=== PATIENT | female | born 1960 | race Caucasian/White ===

== ENCOUNTER 2017-07-23 13:08 | Inpatient (IN) | payer MEDICAID, MEDICARE, OTHER ==
[~2017-07-23] VITALS: Ht 180.3 cm; Wt 59.0 kg
[~2017-07-23 13:08] MED LIST: ALPR2TAB2 PO; CYCL10TA7 PO; CYCL5TAB PO; IBUP-2030 PO; TRAZ150T79 PO
[2017-07-23] MEDS ORDERED: SODIUM CHLORIDE 0.9% 1,000 ML IV ONE (14:18)
[2017-07-23] MEDS ORDERED: ONDANSETRON HCL 4MG/2ML VIAL IV ONE (14:45)
[2017-07-23] MEDS ORDERED: PANTOPRAZOLE SODIUM 40 MG/VIAL IV ONE (14:45)
[2017-07-23 15:16] LABS: BG BASE EXCESS -2.5 mmol/L (-2.0-2.0); BG CARBOXYHEMOGLOBIN 0.7 % (0.5-1.5); BG DEOXYHEMOGLOBIN 2.3 % (0.0-5.0); BG FRACTION INSPIRED OXYGEN 21; BG HCO3 ACT 20.5 mmol/L (22.0-26.0); BG METHEMOGLOBIN 0.2 % (0.0-1.5); BG OXYGEN SATURATION 97.7 % (92.0-98.5); BG OXYHEMOGLOBIN 96.8 % (94.0-97.0); BG PCO2 29.3 mmHg (35.0-45.0); BG PH 7.462 (7.350-7.450); BG SAMPLE SITE RIGHT RADIAL; BG TOTAL HEMOGLOBIN 10.6 g/dL (12.0-18.0); BG VENT MODE ROOM AIR
[2017-07-23 15:50] LABS: EOSINOPHILS % 0.5 % (0.0-5.0); HEMATOCRIT. 31.2 % (36.0-48.0); HEMOGLOBIN. 10.5 g/dL (12.0-16.0); LYMPHOCYTES % 20.3 % (20.0-50.0); MEAN CORPUSCULAR HEMOGLOBIN 36.9 pg (28.0-32.0); MEAN PLATELET VOLUME 10.6 fl (7.4-10.4); MONOCYTES % 7.5 % (2.0-8.0); NEUTROPHILS % 70.7 % (40.0-76.0); PLATELET 203 x1000/uL (130-400); RED BLOOD CELL COUNT 2.84 mill/uL (4.2-5.4); RED CELL DISTRIBUTION WIDTH 22.9 % (11.6-14.6)
[2017-07-23 15:59] LABS: CREATINE KINASE 66 IU/L (26-192)
[2017-07-23 16:01] LABS: CREATINE KINASE MB FRACTION < 0.5 ng/mL (0.5-3.6)
[2017-07-23 16:18] LABS: PLATELET ESTIMATE NORMAL
[2017-07-23 16:19] LABS: INR 1.1; PARTIAL THROMBOPLASTIN TIME 22.6 sec (23.4-31.0); PROTHROMBIN TIME 11.4 sec (9.4-11.6)
[2017-07-23 16:54] LABS: CLARITY URINE CLOUDY (CLEAR); COLOR URINE DARK YELLOW (YELLOW); KETONES URINE TRACE (NEGATIVE); LEUKOCYTE ESTERASE URINE TRACE (NEGATIVE); NITRITE URINE NEGATIVE (NEGATIVE); OCCULT BLOOD URINE 1+ (NEGATIVE); PROTEIN URINE 2+ (NEGATIVE); SPECIFIC GRAVITY URINE 1.026 (1.005-1.030)
[2017-07-23 16:59] LABS: CHLORIDE 104 mEq/L (98-107)
[2017-07-23 17:58] LABS: *AMPHETAMINES SCREEN URINE NEGATIVE (NEGATIVE); *BARBITURATES SCREEN URINE NEGATIVE (NEGATIVE)
[2017-07-23 17:59] LABS: *BENZODIAZEPINES SCREEN URINE PRESUMTIVE POSITIVE (NEGATIVE); *COCAINE SCREEN URINE NEGATIVE (NEGATIVE); METHADONE URINE SCREEN NEGATIVE (NEGATIVE); OPIATES URINE SCREEN NEGATIVE (NEGATIVE); PHENCYCLIDINE URINE SCREEN NEGATIVE (NEGATIVE)
[2017-07-23 18:00] LABS: CANNABINOID URINE SCREEN PRESUMTIVE POSITIVE (NEGATIVE)
[2017-07-23] MEDS ORDERED: CEFTRIAXONE 1 G PREMIX 50 ML IV ONE (18:00)
[2017-07-23] MEDS ORDERED: ONDANSETRON 4MG ODT PO ONE (18:00)
[2017-07-23] MEDS ORDERED: MORPHINE SULFATE 4 MG/ML CPJ (NOT FOR IM USE) IV ONE (18:00)
[2017-07-23] MEDS ORDERED: POTASSIUM CHLORIDE 20MEQ TABLET SR PO ONE (18:00)
[2017-07-23] MEDS ORDERED: SODIUM CHLORIDE 0.45% 1,000 ML IV SCH (18:39)
[2017-07-23] MEDS ORDERED: NA PHOS,M-B/NA PHOS,DI-BA ENEMA 118ML PR PRN (18:45)
[2017-07-23] MEDS ORDERED: GUAIFENESIN 200MG/10ML SUGAR FREE UDC PO PRN (18:45)
[2017-07-23] MEDS ORDERED: ONDANSETRON HCL 4MG/2ML VIAL IV PRN (18:45)
[2017-07-23] MEDS ORDERED: DIPHENHYDRAMINE 50MG/ML VIAL IV PRN (18:45)
[2017-07-23] MEDS ORDERED: ACETAMINOPHEN 325MG TABLET PO PRN (18:45)
[2017-07-23] MEDS ORDERED: LORAZEPAM 2MG/ML CPJ IV PRN (18:45)
[2017-07-23] MEDS ORDERED: HYDROCODONE/ACETAMINOPHEN 5/325MG TABLET PO PRN (18:45)
[2017-07-23] MEDS ORDERED: IPRATROPIUM/ALBUTEROL 0.5-3(2.5)MG/3ML NEB INH PRN (18:45)
[2017-07-23] MEDS ORDERED: DOCUSATE SODIUM 100MG CAPSULE PO PRN (18:45)
[2017-07-23] MEDS ORDERED: CLONIDINE 0.1MG TABLET PO PRN (18:45)
[2017-07-23] MEDS ORDERED: MAGNESIUM/ALUMINUM HYDROXIDE/SIMETHICONE 30ML UDC PO PRN (18:45)
[2017-07-23] MEDS: HYDROMORPHONE HCL/PF 2MG/ML CPJ IV PRN (20:48)
[2017-07-23 23:10] VITALS: BP 136/92
[2017-07-23] MEDS ORDERED: IBUP-1649 PO (23:24)
[2017-07-23] MEDS ORDERED: ALPR2TAB2 PO (23:24)
[2017-07-23 23:36] LABS: CHLORIDE 108 mEq/L (98-107)
[2017-07-24] MEDS: HYDROMORPHONE HCL/PF 2MG/ML CPJ IV PRN ×2 (00:36→05:51)
[2017-07-24] MEDS ORDERED: LEVOFLOXACIN 500MG PREMIX 100 ML IV SCH (02:00)
[2017-07-24 04:00] VITALS: BP 130/91
[2017-07-24 06:54] LABS: CHLORIDE 107 mEq/L (98-107)
[2017-07-24 07:12] LABS: LDL CHOLESTEROL 86 mg/dL (5-100)
[2017-07-24 07:13] LABS: HDL CHOLESTEROL 112 mg/dL (40-59); HEMATOCRIT. 26.5 % (36.0-48.0); HEMOGLOBIN. 8.9 g/dL (12.0-16.0); MEAN CORPUSCULAR HEMOGLOBIN 37.5 pg (28.0-32.0); MEAN CORPUSCULAR VOLUME 111.3 fL (81.0-99.0); MEAN PLATELET VOLUME 10.2 fl (7.4-10.4); PLATELET 147 x1000/uL (130-400); RED BLOOD CELL COUNT 2.38 mill/uL (4.2-5.4); RED CELL DISTRIBUTION WIDTH 22.4 % (11.6-14.6)
[2017-07-24 08:00] VITALS: BP 112/81
[2017-07-24] MEDS ORDERED: POTASSIUM CHLORIDE 20MEQ TABLET SR PO NR (11:45)
[2017-07-24 13:21] VITALS: BP 131/56
[2017-07-24 18:04] LABS: PLATELET ESTIMATE NORMAL
== END 2017-07-24 14:44 | disposition home or self-care (01) | DRG 393 ==
LOC: ER 13:08 → 5WST 17:04 → ENRESERV 21:02
PROVIDERS: ADMIT Internal Medicine; ATTEND Internal Medicine
DX: K63.5 Polyp of colon (principal); K29.71 Gastritis, unspecified, with bleeding; D64.9 Anemia, unspecified; F41.9 Anxiety disorder, unspecified; G62.9 Polyneuropathy, unspecified; I10 Essential (primary) hypertension; Z79.899 Other long term (current) drug therapy
CPT/HCPCS: 36415; 36600; 71045; 80048; 80053; 80061; 80305; 81003; 82010; 82375; 82550; 82553; 82805; 82962; 83605; 83880; 84443; 84484; 85025; 85610; 85730; 86850; 86900; 87040; 87086; 93005; 96365; 96375; 96376; 99291; C9113; G0482; J0696; J1170; J1200; J1956; J2060; J2270; J2405; J7030; Q0162

== ENCOUNTER 2017-07-29 17:33 | Emergency (ER) | payer SELFPAY ==
[~2017-07-29] VITALS: Ht 162.6 cm; Wt 65.0 kg
[~2017-07-29 17:33] MED LIST changes: -CYCL10TA7 PO; -CYCL5TAB PO; +IBUP-1649 PO; -IBUP-2030 PO
[2017-07-30 02:21] LABS: EOSINOPHILS % 0.6 % (0.0-5.0); HEMATOCRIT. 30.4 % (36.0-48.0); HEMOGLOBIN. 10.1 g/dL (12.0-16.0); LYMPHOCYTES % 38.6 % (20.0-50.0); MEAN CORPUSCULAR HEMOGLOBIN 36.1 pg (28.0-32.0); MEAN CORPUSCULAR VOLUME 108.4 fL (81.0-99.0); MEAN PLATELET VOLUME 8.8 fl (7.4-10.4); MONOCYTES % 10.6 % (2.0-8.0); NEUTROPHILS % 48.2 % (40.0-76.0); PLATELET 275 x1000/uL (130-400); RED BLOOD CELL COUNT 2.81 mill/uL (4.2-5.4); RED CELL DISTRIBUTION WIDTH 22.3 % (11.6-14.6)
[2017-07-30 02:24] LABS: CHLORIDE 103 mEq/L (98-107)
[2017-07-30 02:27] LABS: ETHANOL BLOOD 213 mg/dL
[2017-07-30 02:32] LABS: PLATELET ESTIMATE NORMAL
[2017-07-30 03:43] LABS: *AMPHETAMINES SCREEN URINE NEGATIVE (NEGATIVE); *BARBITURATES SCREEN URINE NEGATIVE (NEGATIVE); *BENZODIAZEPINES SCREEN URINE NEGATIVE (NEGATIVE)
[2017-07-30 03:44] LABS: *COCAINE SCREEN URINE NEGATIVE (NEGATIVE); CANNABINOID URINE SCREEN PRESUMTIVE POSITIVE (NEGATIVE); METHADONE URINE SCREEN NEGATIVE (NEGATIVE); OPIATES URINE SCREEN NEGATIVE (NEGATIVE); PHENCYCLIDINE URINE SCREEN NEGATIVE (NEGATIVE)
[2017-07-30] MEDS ORDERED: IBUPROFEN 600MG TABLET PO ONE (08:00)
[2017-07-30] MEDS ORDERED: POTASSIUM CHLORIDE 20MEQ TABLET SR PO ONE (08:00)
[2017-07-30 09:45] VITALS: BP 133/86
== END 2017-07-30 10:23 | disposition home or self-care (01) ==
LOC: ER 17:38
DX: F10.129 Alcohol abuse with intoxication, unspecified (principal); Y90.7 Blood alcohol level of 200-239 mg/100 ml
CPT/HCPCS: 36415; 80048; 80305; 81025; 85025; 99284; G0482

== ENCOUNTER 2017-08-20 21:04 | Emergency (ER) | payer MEDICARE ==
[~2017-08-20] VITALS: Ht 165.1 cm; Wt 59.0 kg
[~2017-08-20 21:04] MED LIST changes: +GABA-531 MT
[2017-08-20 21:14] VITALS: BP 120/86
== END 2017-08-21 08:19 | disposition left against medical advice (07) ==
LOC: ER 21:04
DX: Z53.21 Procedure and treatment not carried out due to patient leaving prior to being seen by health care provider (principal)
CPT/HCPCS: J7030

== ENCOUNTER 2017-11-05 10:50 | Inpatient (IN) | payer MEDICARE, OTHER ==
[~2017-11-05] VITALS: Ht 177.8 cm; Wt 73.9 kg
[2017-11-05] MEDS ORDERED: ONDANSETRON HCL 4MG/2ML INJ IV STA (11:20)
[2017-11-05] MEDS ORDERED: ADENOSINE 3 MG/ML 2ML VIAL IV ONE ×3 (11:20→11:30)
[2017-11-05] MEDS ORDERED: MORPHINE SULFATE 4 MG/ML CPJ (NOT FOR IM USE) IV STA (11:20)
[2017-11-05 14:10] LABS: BASOPHILS % 0.5 % (0.0-2.0); HEMATOCRIT. 40.6 % (36.0-48.0); HEMOGLOBIN. 13.3 g/dL (12.0-16.0); LYMPHOCYTES % 55.8 % (20.0-50.0); MEAN CORPUSCULAR HEMOGLOBIN 30.2 pg (28.0-32.0); MEAN PLATELET VOLUME 10.3 fl (7.4-10.4); MONOCYTES % 5.6 % (2.0-8.0); NEUTROPHILS % 38.1 % (40.0-76.0); PLATELET 323 x1000/uL (130-400); RED BLOOD CELL COUNT 4.42 mill/uL (4.2-5.4); RED CELL DISTRIBUTION WIDTH 15.2 % (11.6-14.6)
[2017-11-05 14:18] LABS: CHLORIDE 95 mEq/L (98-107)
[2017-11-05] MEDS ORDERED: DEXTROSE 50% WATER 50ML SYRINGE IV ONE ×2 (14:46→15:15)
[2017-11-05] MEDS ORDERED: POTASSIUM CHLORIDE 20MEQ TABLET SR PO ONE (15:15)
[2017-11-05] MEDS ORDERED: IBUP-2030 PO (17:25)
[2017-11-05] MEDS ORDERED: GABA-290 PO (17:25)
[2017-11-05] MEDS ORDERED: ONDANSETRON HCL 4MG/2ML INJ IV PRN (17:45)
[2017-11-05] MEDS ORDERED: POTASSIUM CHLORIDE 20MEQ/PACKET PO NR (17:45)
[2017-11-05] MEDS ORDERED: DILTIAZEM HCL 5MG/ML 5ML VIAL IV PRN (17:45)
[2017-11-05] MEDS ORDERED: ALPRAZOLAM 0.5 MG TABLET PO PRN (17:45)
[2017-11-05] MEDS: GABAPENTIN 300MG CAPSULE PO SCH (17:52)
[2017-11-05] MEDS: MORPHINE SULFATE 4 MG/ML CPJ (NOT FOR IM USE) IV PRN (17:59)
[2017-11-05] MEDS: ONDANSETRON HCL 4MG/2ML INJ IV PRN (17:59)
[2017-11-05] MEDS ORDERED: S350 PO (18:34)
[2017-11-05] MEDS ORDERED: POTASSIUM CHLORIDE INJ 40 MEQ in DEXT 5% WATER 250 ML IV SCH (19:00)
[2017-11-05 19:02] VITALS: BP 146/80
[2017-11-05 20:00] VITALS: BP 142/84
[2017-11-05] MEDS ORDERED: METOPROLOL TARTRATE 25MG TABLET PO SCH (21:00)
[2017-11-05] MEDS: TRAZODONE HCL 50MG TABLET PO SCH (21:21)
[2017-11-05] MEDS: METOPROLOL TARTRATE 50MG TABLET PO SCH (21:21)
[2017-11-05] MEDS: DILTIAZEM HCL 30MG TABLET PO SCH (22:12)
[2017-11-06] VITALS: BP 106/65
[2017-11-06 02:47] LABS: CLARITY URINE CLEAR (CLEAR); COLOR URINE YELLOW (YELLOW); KETONES URINE 3+ (NEGATIVE); LEUKOCYTE ESTERASE URINE NEGATIVE (NEGATIVE); NITRITE URINE NEGATIVE (NEGATIVE); OCCULT BLOOD URINE 1+ (NEGATIVE); PH URINE 5.5 (4.5-8.0); PROTEIN URINE NEGATIVE (NEGATIVE); SPECIFIC GRAVITY URINE 1.013 (1.005-1.030); UROBILINOGEN URINE 0.2 E.U./dL (0.2-1.0)
[2017-11-06 03:06] LABS: OPIATES URINE SCREEN PRESUMTIVE POSITIVE (NEGATIVE)
[2017-11-06 03:07] LABS: *AMPHETAMINES SCREEN URINE NEGATIVE (NEGATIVE); *BARBITURATES SCREEN URINE NEGATIVE (NEGATIVE); *BENZODIAZEPINES SCREEN URINE NEGATIVE (NEGATIVE); *COCAINE SCREEN URINE NEGATIVE (NEGATIVE); CANNABINOID URINE SCREEN PRESUMTIVE POSITIVE (NEGATIVE); PHENCYCLIDINE URINE SCREEN NEGATIVE (NEGATIVE)
[2017-11-06 03:08] LABS: METHADONE URINE SCREEN NEGATIVE (NEGATIVE)
[2017-11-06 04:00] VITALS: BP 116/74
[2017-11-06] MEDS: MORPHINE SULFATE 4 MG/ML CPJ (NOT FOR IM USE) IV PRN ×3 (04:22→20:41)
[2017-11-06] MEDS: DILTIAZEM HCL 30MG TABLET PO SCH ×3 (06:00→21:54)
[2017-11-06 06:40] LABS: BASOPHILS % 0.4 % (0.0-2.0); HEMATOCRIT. 31.2 % (36.0-48.0); HEMOGLOBIN. 10.7 g/dL (12.0-16.0); MEAN CORPUSCULAR HEMOGLOBIN 31.2 pg (28.0-32.0); MEAN CORPUSCULAR VOLUME 91.2 fL (81.0-99.0); NEUTROPHILS % 77.6 % (40.0-76.0); PLATELET 183 x1000/uL (130-400); RED BLOOD CELL COUNT 3.43 mill/uL (4.2-5.4); RED CELL DISTRIBUTION WIDTH 14.8 % (11.6-14.6)
[2017-11-06] MEDS: OMEPRAZOLE 20MG CAPSULE EXTENDED RELEASE PO SCH (06:47)
[2017-11-06 07:04] LABS: CHLORIDE 101 mEq/L (98-107)
[2017-11-06 08:00] VITALS: BP 103/63
[2017-11-06] MEDS: METOPROLOL TARTRATE 50MG TABLET PO SCH ×2 (08:23→20:35)
[2017-11-06] MEDS: GABAPENTIN 300MG CAPSULE PO SCH ×3 (08:24→16:57)
[2017-11-06 12:00] VITALS: BP 114/78
[2017-11-06] MEDS: VERAPAMIL HCL 40MG TABLET PO SCH ×2 (13:59→21:53)
[2017-11-06 16:00] VITALS: BP 105/68
[2017-11-06] MEDS: DIGOXIN 250MCG TABLET PO SCH (17:00)
[2017-11-06 20:00] VITALS: BP 104/69
[2017-11-06] MEDS: TRAZODONE HCL 50MG TABLET PO SCH (20:34)
[2017-11-07] VITALS: BP 115/65
[2017-11-07 04:00] VITALS: BP 116/75
[2017-11-07] MEDS: OMEPRAZOLE 20MG CAPSULE EXTENDED RELEASE PO SCH (05:58)
[2017-11-07] MEDS: DILTIAZEM HCL 30MG TABLET PO SCH (05:59)
[2017-11-07] MEDS: VERAPAMIL HCL 40MG TABLET PO SCH (05:59)
[2017-11-07] MEDS: MORPHINE SULFATE 4 MG/ML CPJ (NOT FOR IM USE) IV PRN ×3 (06:06→17:50)
[2017-11-07 08:00] VITALS: BP 119/71
[2017-11-07] MEDS: METOPROLOL TARTRATE 50MG TABLET PO SCH (08:39)
[2017-11-07] MEDS: GABAPENTIN 300MG CAPSULE PO SCH ×3 (09:52→17:49)
[2017-11-07 12:00] VITALS: BP 110/75
[2017-11-07 16:00] VITALS: BP 112/73
[2017-11-07] MEDS: DILTIAZEM HCL 180MG CAPSULE CD 24HR PO SCH (16:23)
[2017-11-07] MEDS: CARISOPRODOL 350 MG TABLET PO PRN (16:23)
[2017-11-07] MEDS: DIGOXIN 250MCG TABLET PO SCH (17:49)
[2017-11-07 20:00] VITALS: BP 94/63
[2017-11-07] MEDS: TRAZODONE HCL 50MG TABLET PO SCH (21:30)
[2017-11-08] VITALS (7 sets, daily range): BP systolic 91–113; BP diastolic 62–73
[2017-11-08] MEDS: OMEPRAZOLE 20MG CAPSULE EXTENDED RELEASE PO SCH (05:49)
[2017-11-08] MEDS: HYDROCODONE/ACETAMINOPHEN 5/325MG TABLET PO PRN (05:50)
[2017-11-08 07:33] LABS: HEMATOCRIT 31.9 % (36.0-48.0); HEMOGLOBIN 10.8 g/dL (12.0-16.0); MEAN CORPUSCULAR HEMOGLOBIN 30.8 pg (28.0-32.0); MEAN CORPUSCULAR VOLUME 90.9 fL (81.0-99.0); PLATELET 110 x1000/uL (130-400); RED CELL DISTRIBUTION WIDTH 14.6 % (11.6-14.6)
[2017-11-08 07:53] LABS: CHLORIDE 102 mEq/L (98-107)
[2017-11-08] MEDS: DILTIAZEM HCL 180MG CAPSULE CD 24HR PO SCH (09:08)
[2017-11-08] MEDS: GABAPENTIN 300MG CAPSULE PO SCH ×3 (09:08→18:31)
[2017-11-08] MEDS: CARISOPRODOL 350 MG TABLET PO PRN ×2 (09:17→18:31)
[2017-11-08] MEDS: MORPHINE SULFATE 4 MG/ML CPJ (NOT FOR IM USE) IV PRN ×2 (13:27→20:22)
[2017-11-08] MEDS: ONDANSETRON HCL 4MG/2ML INJ IV PRN (13:37)
[2017-11-08] MEDS: DIGOXIN 250MCG TABLET PO SCH (18:31)
[2017-11-08] MEDS: TRAZODONE HCL 50MG TABLET PO SCH (21:20)
[2017-11-08] MEDS: DOCUSATE SODIUM 250MG CAPSULE PO SCH (21:20)
[2017-11-09] VITALS: BP 101/64
[2017-11-09 04:00] VITALS: BP 103/57
[2017-11-09] MEDS: MORPHINE SULFATE 4 MG/ML CPJ (NOT FOR IM USE) IV PRN ×3 (04:06→20:17)
[2017-11-09] MEDS: OMEPRAZOLE 20MG CAPSULE EXTENDED RELEASE PO SCH (06:11)
[2017-11-09 08:00] VITALS: BP 105/65
[2017-11-09] MEDS: HYDROCODONE/ACETAMINOPHEN 5/325MG TABLET PO PRN ×2 (08:14→15:46)
[2017-11-09] MEDS: GABAPENTIN 300MG CAPSULE PO SCH ×3 (08:14→17:26)
[2017-11-09] MEDS: DOCUSATE SODIUM 250MG CAPSULE PO SCH ×2 (08:14→17:26)
[2017-11-09] MEDS: DILTIAZEM HCL 180MG CAPSULE CD 24HR PO SCH (08:14)
[2017-11-09 12:00] VITALS: BP 107/64
[2017-11-09] MEDS: CARISOPRODOL 350 MG TABLET PO PRN (13:45)
[2017-11-09 16:00] VITALS: BP 100/62
[2017-11-09] MEDS: DIGOXIN 250MCG TABLET PO SCH (17:26)
[2017-11-09 20:00] VITALS: BP 109/64
[2017-11-09] MEDS: TRAZODONE HCL 50MG TABLET PO SCH (20:17)
[2017-11-09] MEDS ORDERED: MAGNESIUM HYDROXIDE 400MG/5ML 30ML UDC PO PRN (22:15)
[2017-11-10] VITALS: BP 116/75
[2017-11-10] MEDS: MORPHINE SULFATE 4 MG/ML CPJ (NOT FOR IM USE) IV PRN ×3 (03:26→17:53)
[2017-11-10 03:30] VITALS: BP 124/88
[2017-11-10] MEDS: OMEPRAZOLE 20MG CAPSULE EXTENDED RELEASE PO SCH (06:33)
[2017-11-10 07:45] LABS: BASOPHILS % 0.6 % (0.0-2.0); HEMATOCRIT. 34.1 % (36.0-48.0); HEMOGLOBIN. 11.4 g/dL (12.0-16.0); MEAN CORPUSCULAR HEMOGLOBIN 30.5 pg (28.0-32.0); MEAN CORPUSCULAR VOLUME 91.6 fL (81.0-99.0); MEAN PLATELET VOLUME 10.9 fl (7.4-10.4); MONOCYTES % 9.9 % (2.0-8.0); NEUTROPHILS % 57.5 % (40.0-76.0); PLATELET 125 x1000/uL (130-400); RED BLOOD CELL COUNT 3.72 mill/uL (4.2-5.4); RED CELL DISTRIBUTION WIDTH 14.6 % (11.6-14.6)
[2017-11-10 07:57] LABS: CHLORIDE 100 mEq/L (98-107)
[2017-11-10 08:00] VITALS: BP 123/79
[2017-11-10] MEDS: GABAPENTIN 300MG CAPSULE PO SCH ×3 (08:51→17:51)
[2017-11-10] MEDS: DILTIAZEM HCL 180MG CAPSULE CD 24HR PO SCH (08:51)
[2017-11-10] MEDS: DOCUSATE SODIUM 250MG CAPSULE PO SCH ×2 (08:51→17:51)
[2017-11-10] MEDS ORDERED: NA PHOS,M-B/NA PHOS,DI-BA ENEMA 118ML PR PRN (09:00)
[2017-11-10] MEDS: ONDANSETRON HCL 4MG/2ML INJ IV PRN (09:08)
[2017-11-10 12:00] VITALS: BP 109/71
[2017-11-10] MEDS: CARISOPRODOL 350 MG TABLET PO PRN ×2 (12:32→21:20)
[2017-11-10 16:00] VITALS: BP 100/62
[2017-11-10] MEDS: DIGOXIN 250MCG TABLET PO SCH (17:51)
[2017-11-10 20:00] VITALS: BP 106/67
[2017-11-10] MEDS: TRAZODONE HCL 50MG TABLET PO SCH (21:20)
[2017-11-11] VITALS (8 sets, daily range): BP systolic 109–121; BP diastolic 69–84
[2017-11-11] MEDS: OMEPRAZOLE 20MG CAPSULE EXTENDED RELEASE PO SCH (05:15)
[2017-11-11] MEDS: HYDROCODONE/ACETAMINOPHEN 5/325MG TABLET PO PRN ×2 (05:16→09:51)
[2017-11-11] MEDS: CARISOPRODOL 350 MG TABLET PO PRN ×3 (05:21→17:32)
[2017-11-11] MEDS: GABAPENTIN 300MG CAPSULE PO SCH ×3 (09:03→17:25)
[2017-11-11] MEDS: DOCUSATE SODIUM 250MG CAPSULE PO SCH ×2 (09:03→17:25)
[2017-11-11] MEDS: DILTIAZEM HCL 180MG CAPSULE CD 24HR PO SCH (09:04)
[2017-11-11] MEDS: HYDROCODONE/ACETAMINOPHEN 10/325MG TABLET PO PRN ×2 (15:01→20:04)
[2017-11-11] MEDS: DIGOXIN 250MCG TABLET PO SCH (17:25)
[2017-11-11] MEDS: TRAZODONE HCL 50MG TABLET PO SCH (21:28)
[2017-11-12] VITALS: BP 108/69
[2017-11-12 04:00] VITALS: BP 101/66
[2017-11-12] MEDS: OMEPRAZOLE 20MG CAPSULE EXTENDED RELEASE PO SCH (05:52)
[2017-11-12 08:00] VITALS: BP 132/81
[2017-11-12] MEDS: HYDROCODONE/ACETAMINOPHEN 10/325MG TABLET PO PRN ×2 (08:46→17:29)
[2017-11-12] MEDS: DOCUSATE SODIUM 250MG CAPSULE PO SCH ×2 (08:47→17:28)
[2017-11-12] MEDS: DILTIAZEM HCL 180MG CAPSULE CD 24HR PO SCH (08:47)
[2017-11-12] MEDS: GABAPENTIN 300MG CAPSULE PO SCH ×3 (08:47→17:28)
[2017-11-12 12:00] VITALS: BP 111/69
[2017-11-12] MEDS: CARISOPRODOL 350 MG TABLET PO PRN (14:10)
[2017-11-12] MEDS: MORPHINE SULFATE 4 MG/ML CPJ (NOT FOR IM USE) IV PRN (14:11)
[2017-11-12 16:00] VITALS: BP 130/85
[2017-11-12] MEDS: DIGOXIN 250MCG TABLET PO SCH (17:28)
[2017-11-12 20:00] VITALS: BP 110/70
[2017-11-12] MEDS: TRAZODONE HCL 50MG TABLET PO SCH (21:16)
[2017-11-13] VITALS: BP 141/86
[2017-11-13] MEDS: MORPHINE SULFATE 4 MG/ML CPJ (NOT FOR IM USE) IV PRN ×3 (00:03→18:41)
[2017-11-13] MEDS: ALPRAZOLAM 0.5 MG TABLET PO PRN (02:57)
[2017-11-13 04:00] VITALS: BP 121/78
[2017-11-13] MEDS: OMEPRAZOLE 20MG CAPSULE EXTENDED RELEASE PO SCH (05:56)
[2017-11-13] MEDS: CARISOPRODOL 350 MG TABLET PO PRN (05:56)
[2017-11-13 08:19] VITALS: BP 109/76
[2017-11-13] MEDS: DOCUSATE SODIUM 250MG CAPSULE PO SCH ×2 (09:22→18:40)
[2017-11-13] MEDS: GABAPENTIN 300MG CAPSULE PO SCH ×3 (09:22→18:38)
[2017-11-13] MEDS: DILTIAZEM HCL 180MG CAPSULE CD 24HR PO SCH (09:22)
[2017-11-13 12:30] VITALS: BP 98/68
[2017-11-13 16:00] VITALS: BP 113/69
[2017-11-13] MEDS: DIGOXIN 250MCG TABLET PO SCH (18:38)
[2017-11-13 20:00] VITALS: BP 96/62
[2017-11-13] MEDS: TRAZODONE HCL 50MG TABLET PO SCH (20:30)
[2017-11-14] VITALS: BP 118/71
[2017-11-14 04:00] VITALS: BP 116/70
[2017-11-14] MEDS: MORPHINE SULFATE 4 MG/ML CPJ (NOT FOR IM USE) IV PRN ×3 (04:20→21:46)
[2017-11-14] MEDS: OMEPRAZOLE 20MG CAPSULE EXTENDED RELEASE PO SCH (06:35)
[2017-11-14 08:00] VITALS: BP 98/57
[2017-11-14] MEDS: DILTIAZEM HCL 180MG CAPSULE CD 24HR PO SCH (09:00)
[2017-11-14] MEDS: GABAPENTIN 300MG CAPSULE PO SCH ×3 (09:41→18:09)
[2017-11-14] MEDS: CARISOPRODOL 350 MG TABLET PO PRN ×2 (09:41→18:19)
[2017-11-14] MEDS: DOCUSATE SODIUM 250MG CAPSULE PO SCH ×2 (09:42→18:09)
[2017-11-14] MEDS: HYDROCODONE/ACETAMINOPHEN 10/325MG TABLET PO PRN ×2 (09:42→18:20)
[2017-11-14 12:00] VITALS: BP 108/69
[2017-11-14 16:00] VITALS: BP 119/76
[2017-11-14] MEDS: DIGOXIN 250MCG TABLET PO SCH (18:09)
[2017-11-14 20:00] VITALS: BP 119/74
[2017-11-14] MEDS: TRAZODONE HCL 50MG TABLET PO SCH (21:30)
[2017-11-15] VITALS: BP 122/71
[2017-11-15] MEDS: HYDROCODONE/ACETAMINOPHEN 10/325MG TABLET PO PRN ×3 (00:40→18:28)
[2017-11-15 04:00] VITALS: BP 117/64
[2017-11-15] MEDS: MORPHINE SULFATE 4 MG/ML CPJ (NOT FOR IM USE) IV PRN ×3 (05:04→22:52)
[2017-11-15] MEDS: OMEPRAZOLE 20MG CAPSULE EXTENDED RELEASE PO SCH (06:07)
[2017-11-15 06:18] LABS: HEMATOCRIT. 30.9 % (36.0-48.0); HEMOGLOBIN. 10.4 g/dL (12.0-16.0); MEAN CORPUSCULAR HEMOGLOBIN 30.9 pg (28.0-32.0); MEAN CORPUSCULAR VOLUME 92.2 fL (81.0-99.0); MEAN PLATELET VOLUME 10.6 fl (7.4-10.4); PLATELET 221 x1000/uL (130-400); RED BLOOD CELL COUNT 3.35 mill/uL (4.2-5.4); RED CELL DISTRIBUTION WIDTH 15.8 % (11.6-14.6)
[2017-11-15 07:01] LABS: CHLORIDE 104 mEq/L (98-107)
[2017-11-15 08:00] VITALS: BP 134/83
[2017-11-15] MEDS: DOCUSATE SODIUM 250MG CAPSULE PO SCH ×2 (08:50→18:27)
[2017-11-15] MEDS: DILTIAZEM HCL 180MG CAPSULE CD 24HR PO SCH (08:51)
[2017-11-15] MEDS: GABAPENTIN 300MG CAPSULE PO SCH ×3 (08:51→18:28)
[2017-11-15] MEDS: CARISOPRODOL 350 MG TABLET PO PRN ×2 (08:57→18:28)
[2017-11-15 10:08] LABS: PLATELET ESTIMATE NORMAL
[2017-11-15 12:00] VITALS: BP 130/84
[2017-11-15 16:00] VITALS: BP 113/72
[2017-11-15] MEDS: DIGOXIN 250MCG TABLET PO SCH (18:28)
[2017-11-15 20:00] VITALS: BP 114/73
[2017-11-15] MEDS: TRAZODONE HCL 50MG TABLET PO SCH (21:33)
[2017-11-16] VITALS: BP 93/54
[2017-11-16 04:00] VITALS: BP 116/64
[2017-11-16] MEDS: CARISOPRODOL 350 MG TABLET PO PRN ×2 (04:49→17:14)
[2017-11-16] MEDS: HYDROCODONE/ACETAMINOPHEN 10/325MG TABLET PO PRN (04:49)
[2017-11-16] MEDS: OMEPRAZOLE 20MG CAPSULE EXTENDED RELEASE PO SCH (04:53)
[2017-11-16 08:00] VITALS: BP 122/75
[2017-11-16] MEDS: ALPRAZOLAM 0.5 MG TABLET PO PRN (08:09)
[2017-11-16] MEDS: DOCUSATE SODIUM 250MG CAPSULE PO SCH ×2 (08:09→17:14)
[2017-11-16] MEDS: DILTIAZEM HCL 180MG CAPSULE CD 24HR PO SCH (08:10)
[2017-11-16] MEDS: GABAPENTIN 300MG CAPSULE PO SCH ×3 (08:10→17:14)
[2017-11-16] MEDS: MORPHINE SULFATE 4 MG/ML CPJ (NOT FOR IM USE) IV PRN ×2 (11:30→20:31)
[2017-11-16 12:00] VITALS: BP 97/65
[2017-11-16 16:00] VITALS: BP 95/59
[2017-11-16] MEDS: DIGOXIN 250MCG TABLET PO SCH (17:14)
[2017-11-16 20:00] VITALS: BP 104/62
[2017-11-16] MEDS: TRAZODONE HCL 50MG TABLET PO SCH (20:26)
[2017-11-17] VITALS: BP 102/64
[2017-11-17 04:00] VITALS: BP 105/61
[2017-11-17] MEDS: MORPHINE SULFATE 4 MG/ML CPJ (NOT FOR IM USE) IV PRN (05:01)
[2017-11-17] MEDS: OMEPRAZOLE 20MG CAPSULE EXTENDED RELEASE PO SCH (05:56)
[2017-11-17] MEDS: ALPRAZOLAM 0.5 MG TABLET PO PRN (05:57)
[2017-11-17] MEDS: DOCUSATE SODIUM 250MG CAPSULE PO SCH ×2 (08:49→17:33)
[2017-11-17] MEDS: GABAPENTIN 300MG CAPSULE PO SCH ×3 (08:51→17:34)
[2017-11-17] MEDS: DILTIAZEM HCL 180MG CAPSULE CD 24HR PO SCH (08:55)
[2017-11-17 12:18] VITALS: BP 118/76
[2017-11-17] MEDS: CARISOPRODOL 350 MG TABLET PO PRN ×2 (12:24→17:34)
[2017-11-17 14:13] VITALS: BP 118/76
[2017-11-17 16:00] VITALS: BP 121/74
[2017-11-17] MEDS: DIGOXIN 250MCG TABLET PO SCH (17:32)
[2017-11-17 20:00] VITALS: BP 125/81
== END 2017-11-17 21:20 | DRG 641 ==
LOC: ER 11:09 → 5WST 15:18 → EDBEDREQ 15:41 → EDBEDREQTM 15:41 → ENRESERV 16:05
PROVIDERS: ADMIT Internal Medicine; ATTEND Internal Medicine
DX: E16.2 Hypoglycemia, unspecified (principal); I47.1 Supraventricular tachycardia; E87.6 Hypokalemia; I10 Essential (primary) hypertension; F10.10 Alcohol abuse, uncomplicated; E87.8 Other disorders of electrolyte and fluid balance, not elsewhere classified; K29.70 Gastritis, unspecified, without bleeding; D64.9 Anemia, unspecified; G47.00 Insomnia, unspecified; F12.90 Cannabis use, unspecified, uncomplicated; I48.91 Unspecified atrial fibrillation; J44.9 Chronic obstructive pulmonary disease, unspecified; F41.9 Anxiety disorder, unspecified; G62.9 Polyneuropathy, unspecified; Z59.0 Homelessness; Z71.41 Alcohol abuse counseling and surveillance of alcoholic; Z79.899 Other long term (current) drug therapy
CPT/HCPCS: 36415; 71045; 80048; 80053; 80162; 80305; 81003; 82962; 83880; 84132; 84443; 84484; 85025; 85027; 93005; 93306; 96374; 96375; 97112; 97116; 97162; 97530; 99291; C1893; J0153; J2270; J2405; J3480; J7050; J7060

== ENCOUNTER 2018-01-05 16:45 | Inpatient (IN) | payer MEDICARE, OTHER ==
[~2018-01-05] VITALS: Ht 177.8 cm; Wt 68.0 kg
[~2018-01-05 16:45] MED LIST changes: +GABA-290 PO; -GABA-531 MT; -IBUP-1649 PO; +IBUP-2030 PO; +S350 PO
[2018-01-05] MEDS ORDERED: SODIUM CHLORIDE 0.9% 1,000 ML IV ONE (20:15)
[2018-01-05] MEDS ORDERED: NITROGLYCERIN 0.4MG TABLET SL SL PRN ×2 (20:15→22:30)
[2018-01-05] MEDS ORDERED: ASPIRIN 81MG TABLET PO ONE (20:15)
[2018-01-05] MEDS ORDERED: KETOROLAC 30MG/ML VIAL IV ONE (20:30)
[2018-01-05 20:37] LABS: BASOPHILS % 1.1 % (0.0-2.0); HEMATOCRIT. 39.3 % (36.0-48.0); LYMPHOCYTES % 38.5 % (20.0-50.0); MEAN CORPUSCULAR HEMOGLOBIN 31.3 pg (28.0-32.0); MEAN CORPUSCULAR VOLUME 94.3 fL (81.0-99.0); MEAN PLATELET VOLUME 10.3 fl (7.4-10.4); MONOCYTES % 4.4 % (2.0-8.0); PLATELET 294 x1000/uL (130-400); RED BLOOD CELL COUNT 4.16 mill/uL (4.2-5.4); RED CELL DISTRIBUTION WIDTH 15.2 % (11.6-14.6)
[2018-01-05 20:43] LABS: CHLORIDE 103 mEq/L (98-107)
[2018-01-05 20:49] LABS: D-DIMER 0.36 mg/L FEU (<0.50); INR 1.2; PROTHROMBIN TIME 12.1 sec (9.1-11.1)
[2018-01-05 20:59] LABS: ETHANOL BLOOD 318 mg/dL
[2018-01-05] MEDS ORDERED: ZOLPIDEM TARTRATE 5MG TABLET PO PRN (21:00)
[2018-01-05] MEDS ORDERED: POTASSIUM CHLORIDE 20MEQ TABLET SR PO ONE (21:45)
[2018-01-05] MEDS ORDERED: GUAIFENESIN 200MG/10ML SUGAR FREE UDC PO PRN (22:30)
[2018-01-05] MEDS ORDERED: DOCUSATE SODIUM 100MG CAPSULE PO PRN (22:30)
[2018-01-05] MEDS ORDERED: IPRATROPIUM/ALBUTEROL 0.5-3(2.5)MG/3ML NEB INH PRN (22:30)
[2018-01-05] MEDS ORDERED: MAGNESIUM/ALUMINUM HYDROXIDE/SIMETHICONE 30ML UDC PO PRN (22:30)
[2018-01-05] MEDS ORDERED: ACETAMINOPHEN 325MG TABLET PO PRN (22:30)
[2018-01-05] MEDS ORDERED: NA PHOS,M-B/NA PHOS,DI-BA ENEMA 118ML PR PRN (22:30)
[2018-01-05] MEDS ORDERED: CLONIDINE 0.1MG TABLET PO PRN (22:30)
[2018-01-06] MEDS: KETOROLAC 15MG/ML VIAL IV PRN ×5 (01:03→21:47)
[2018-01-06] MEDS: ONDANSETRON HCL 4MG/2ML INJ IV PRN ×2 (01:15→07:28)
[2018-01-06] MEDS ORDERED: MVI, ADULT NO.1 10 ML, FOLIC ACID 1 MG, THIAMINE HCL 100 MG in SODIUM CHLORIDE 0.9% 1,0... IV SCH ×4 (06:00)
[2018-01-06 06:29] LABS: CLARITY URINE CLEAR (CLEAR); COLOR URINE YELLOW (YELLOW); KETONES URINE 1+ (NEGATIVE); LEUKOCYTE ESTERASE URINE 1+ (NEGATIVE); NITRITE URINE NEGATIVE (NEGATIVE); OCCULT BLOOD URINE 1+ (NEGATIVE); PROTEIN URINE NEGATIVE (NEGATIVE); SPECIFIC GRAVITY URINE 1.017 (1.005-1.030); UROBILINOGEN URINE 0.2 E.U./dL (0.2-1.0)
[2018-01-06 07:11] LABS: *AMPHETAMINES SCREEN URINE NEGATIVE (NEGATIVE); *BARBITURATES SCREEN URINE NEGATIVE (NEGATIVE)
[2018-01-06 07:12] LABS: *BENZODIAZEPINES SCREEN URINE PRESUMTIVE POSITIVE (NEGATIVE); *COCAINE SCREEN URINE NEGATIVE (NEGATIVE); METHADONE URINE SCREEN NEGATIVE (NEGATIVE); OPIATES URINE SCREEN NEGATIVE (NEGATIVE); PHENCYCLIDINE URINE SCREEN NEGATIVE (NEGATIVE)
[2018-01-06 07:14] LABS: CANNABINOID URINE SCREEN PRESUMTIVE POSITIVE (NEGATIVE)
[2018-01-06] MEDS: FAMOTIDINE 20MG TABLET PO SCH ×2 (10:15→21:46)
[2018-01-06 10:43] VITALS: BP 135/75
[2018-01-06] MEDS: ENOXAPARIN 40MG/0.4ML SYR SUBCUT SCH (11:56)
[2018-01-06] MEDS: METOPROLOL TARTRATE 25MG TABLET PO SCH ×2 (12:01→21:46)
[2018-01-06] MEDS: LEVOFLOXACIN 500MG TABLET PO SCH (14:15)
[2018-01-06 18:52] LABS: CREATINE KINASE 94 IU/L (26-192)
[2018-01-06 18:54] LABS: CREATINE KINASE MB FRACTION < 1.0 ng/mL (0.5-3.6)
[2018-01-06 20:00] VITALS: BP_SYST 121; BP_SYST 126; BP_DIAS 76
[2018-01-07] VITALS: BP 141/78
[2018-01-07 04:00] VITALS: BP 125/70
[2018-01-07] MEDS: KETOROLAC 15MG/ML VIAL IV PRN (07:42)
[2018-01-07] MEDS: FAMOTIDINE 20MG TABLET PO SCH (09:00)
[2018-01-07] MEDS: METOPROLOL TARTRATE 25MG TABLET PO SCH (09:00)
[2018-01-07] MEDS: ENOXAPARIN 40MG/0.4ML SYR SUBCUT SCH (09:00)
[2018-01-07 10:22] VITALS: BP 147/80
[2018-01-07] MEDS: LEVOFLOXACIN 500MG TABLET PO SCH ×2 (11:35→11:37)
[2018-01-13] MEDS ORDERED: DIPH25TA24 MT (22:26)
[2018-01-13] MEDS ORDERED: CYCL10TA7 MT (22:26)
[2018-01-13] MEDS ORDERED: DIGO250T81 MT (22:26)
== END 2018-01-07 13:07 | disposition home health service (06) | DRG 392 ==
LOC: ER 16:45 → 6WST 21:52 → EDBEDREQ 21:54 → EDBEDREQTM 21:54 → ENRESERV 01-06 08:04
PROVIDERS: ADMIT Internal Medicine; ATTEND Internal Medicine
DX: K21.9 Gastro-esophageal reflux disease without esophagitis (principal); I47.1 Supraventricular tachycardia; I50.9 Heart failure, unspecified; I11.0 Hypertensive heart disease with heart failure; F10.229 Alcohol dependence with intoxication, unspecified; F12.10 Cannabis abuse, uncomplicated; E87.6 Hypokalemia; Y90.8 Blood alcohol level of 240 mg/100 ml or more; Z59.0 Homelessness; Z79.899 Other long term (current) drug therapy
CPT/HCPCS: 36415; 71045; 80305; 82550; 82553; 83036; 83880; 84484; 85379; 93005; 96374; 96375; 99285; G0482; J1650; J1885; J2405; J3411; J3490; J7030

== ENCOUNTER 2018-01-24 10:20 | Inpatient (IN) | payer MEDICARE, OTHER ==
[~2018-01-24] VITALS: Ht 177.8 cm; Wt 68.0 kg
[~2018-01-24 10:20] MED LIST changes: +CYCL10TA7 MT; +DIGO250T81 MT; +DIPH25TA24 MT; -IBUP-2030 PO
[2018-01-24] MEDS ORDERED: MORPHINE SULFATE 4 MG/ML CPJ (NOT FOR IM USE) IV STA (11:17)
[2018-01-24] MEDS ORDERED: MORPHINE SULFATE 10 MG/ML CPJ IV NR (12:00)
[2018-01-24 12:15] LABS: BASOPHILS % 1.9 % (0.0-2.0); HEMATOCRIT. 35.7 % (36.0-48.0); LYMPHOCYTES % 31.9 % (20.0-50.0); MEAN CORPUSCULAR HEMOGLOBIN 32.2 pg (28.0-32.0); MEAN CORPUSCULAR VOLUME 95.5 fL (81.0-99.0); MONOCYTES % 12.6 % (2.0-8.0); NEUTROPHILS % 53.6 % (40.0-76.0); PLATELET 233 x1000/uL (130-400); RED BLOOD CELL COUNT 3.74 mill/uL (4.2-5.4); RED CELL DISTRIBUTION WIDTH 16.3 % (11.6-14.6)
[2018-01-24 12:29] LABS: CHLORIDE 96 mEq/L (98-107)
[2018-01-24] MEDS ORDERED: AMOXICILLIN/POTASSIUM CLAVULANATE 875/125MG TAB PO ONE (13:30)
[2018-01-24] MEDS ORDERED: ONDANSETRON HCL 4MG/2ML INJ IV PRN (15:45)
[2018-01-24] MEDS ORDERED: MAGNESIUM/ALUMINUM HYDROXIDE/SIMETHICONE 30ML UDC PO PRN (15:45)
[2018-01-24] MEDS ORDERED: ACETAMINOPHEN 325MG TABLET PO PRN (15:45)
[2018-01-24] MEDS ORDERED: DOCUSATE SODIUM 100MG CAPSULE PO PRN (15:45)
[2018-01-24] MEDS ORDERED: CLONIDINE 0.1MG TABLET PO PRN (15:45)
[2018-01-24 17:40] VITALS: BP 130/83
[2018-01-24] MEDS: HYDROCODONE/ACETAMINOPHEN 5/325MG TABLET PO PRN (18:52)
[2018-01-24 20:00] VITALS: BP 120/82
[2018-01-24] MEDS ORDERED: VANCOMYCIN 1500MG in DEXTROSE 5% WATER 250ML IV NR (21:00)
[2018-01-25] VITALS: BP 102/62
[2018-01-25] MEDS: HYDROCODONE/ACETAMINOPHEN 5/325MG TABLET PO PRN ×3 (00:08→17:13)
[2018-01-25 01:33] LABS: CREATINE KINASE 65 IU/L (26-192); CREATINE KINASE MB FRACTION < 1.0 ng/mL (0.5-3.6)
[2018-01-25 04:00] VITALS: BP 119/73
[2018-01-25] MEDS: VANCOMYCIN 750 MG PREMIX 150 ML IV SCH ×3 (05:41→21:41)
[2018-01-25 07:10] LABS: BASOPHILS % 1.4 % (0.0-2.0); EOSINOPHILS % 0.3 % (0.0-5.0); HEMATOCRIT. 32.2 % (36.0-48.0); HEMOGLOBIN. 10.9 g/dL (12.0-16.0); LYMPHOCYTES % 34.8 % (20.0-50.0); MEAN CORPUSCULAR HEMOGLOBIN 32.1 pg (28.0-32.0); MEAN CORPUSCULAR VOLUME 95.1 fL (81.0-99.0); MEAN PLATELET VOLUME 10.2 fl (7.4-10.4); MONOCYTES % 12.2 % (2.0-8.0); NEUTROPHILS % 51.3 % (40.0-76.0); PLATELET 181 x1000/uL (130-400); RED BLOOD CELL COUNT 3.38 mill/uL (4.2-5.4); RED CELL DISTRIBUTION WIDTH 16.2 % (11.6-14.6)
[2018-01-25 08:28] VITALS: BP 110/65
[2018-01-25] MEDS ORDERED: CARISOPRODOL 350 MG TABLET PO PRN (09:15)
[2018-01-25] MEDS ORDERED: DILTIAZEM HCL 5MG/ML 5ML VIAL IV NR (09:15)
[2018-01-25] MEDS: CARISOPRODOL 350 MG TABLET PO PRN ×2 (10:26→19:45)
[2018-01-25] MEDS: DIGOXIN 250MCG TABLET PO SCH (10:26)
[2018-01-25 12:00] VITALS: BP 113/77
[2018-01-25] MEDS ORDERED: ASPIRIN 81MG EC TABLET PO NR (12:18)
[2018-01-25 12:37] LABS: CHLORIDE 96 mEq/L (98-107)
[2018-01-25 12:52] LABS: CREATINE KINASE 58 IU/L (26-192)
[2018-01-25 12:54] LABS: CREATINE KINASE MB FRACTION < 1.0 ng/mL (0.5-3.6)
[2018-01-25] MEDS: DILTIAZEM HCL 30MG TABLET PO SCH ×2 (13:22→17:13)
[2018-01-25] MEDS: ENOXAPARIN 40MG/0.4ML SYR SUBCUT SCH (13:24)
[2018-01-25 16:00] VITALS: BP 118/65
[2018-01-25 20:00] VITALS: BP 132/88
[2018-01-25] MEDS: ALPRAZOLAM 0.5 MG TABLET PO SCH (21:41)
[2018-01-26] VITALS (7 sets, daily range): BP systolic 99–130; BP diastolic 56–84
[2018-01-26] MEDS: DILTIAZEM HCL 30MG TABLET PO SCH ×4 (00:41→21:37)
[2018-01-26 06:17] LABS: EOSINOPHILS % 0.2 % (0.0-5.0); HEMATOCRIT. 34.2 % (36.0-48.0); HEMOGLOBIN. 11.2 g/dL (12.0-16.0); LYMPHOCYTES % 34.6 % (20.0-50.0); MEAN CORPUSCULAR HEMOGLOBIN 32.4 pg (28.0-32.0); MEAN CORPUSCULAR VOLUME 98.6 fL (81.0-99.0); MEAN PLATELET VOLUME 10.4 fl (7.4-10.4); MONOCYTES % 7.2 % (2.0-8.0); PLATELET 142 x1000/uL (130-400); RED BLOOD CELL COUNT 3.47 mill/uL (4.2-5.4); RED CELL DISTRIBUTION WIDTH 16.1 % (11.6-14.6)
[2018-01-26] MEDS: VANCOMYCIN 750 MG PREMIX 150 ML IV SCH (06:40)
[2018-01-26] MEDS: HYDROCODONE/ACETAMINOPHEN 5/325MG TABLET PO PRN ×2 (08:27→13:07)
[2018-01-26] MEDS: ASPIRIN 81MG EC TABLET PO SCH (08:27)
[2018-01-26] MEDS: ALPRAZOLAM 0.5 MG TABLET PO SCH ×2 (08:27→21:36)
[2018-01-26] MEDS: DIGOXIN 250MCG TABLET PO SCH (08:27)
[2018-01-26] MEDS: ENOXAPARIN 40MG/0.4ML SYR SUBCUT SCH (08:28)
[2018-01-26 09:47] LABS: CHLORIDE 99 mEq/L (98-107)
[2018-01-26 09:57] LABS: VANCOMYCIN TROUGH 17.7 ug/mL (5.0-10.0)
[2018-01-26] MEDS: CARISOPRODOL 350 MG TABLET PO PRN ×2 (11:18→20:39)
[2018-01-26] MEDS ORDERED: POTASSIUM CHLORIDE 20MEQ TABLET SR PO NR (12:45)
[2018-01-26] MEDS: MAGNESIUM OXIDE 400MG TABLET PO SCH (12:57)
[2018-01-26] MEDS ORDERED: MAGNESIUM 2 G PREMIX 50 ML IV NR (13:30)
[2018-01-26] MEDS ORDERED: VANCOMYCIN 1 G PREMIX 200 ML IV SCH (18:00)
[2018-01-27] VITALS: BP 100/88
[2018-01-27 04:00] VITALS: BP 102/67
[2018-01-27 05:27] VITALS: BP 102/67
[2018-01-27] MEDS: DILTIAZEM HCL 30MG TABLET PO SCH (06:00)
[2018-01-27] MEDS: CARISOPRODOL 350 MG TABLET PO PRN (06:01)
[2018-01-27 06:42] LABS: BASOPHILS % 1.1 % (0.0-2.0); EOSINOPHILS % 0.2 % (0.0-5.0); HEMATOCRIT. 32.6 % (36.0-48.0); HEMOGLOBIN. 10.7 g/dL (12.0-16.0); LYMPHOCYTES % 28.2 % (20.0-50.0); MEAN CORPUSCULAR HEMOGLOBIN 32.1 pg (28.0-32.0); MEAN CORPUSCULAR VOLUME 97.6 fL (81.0-99.0); MONOCYTES % 4.2 % (2.0-8.0); NEUTROPHILS % 66.3 % (40.0-76.0); PLATELET 118 x1000/uL (130-400); RED BLOOD CELL COUNT 3.34 mill/uL (4.2-5.4); RED CELL DISTRIBUTION WIDTH 16.2 % (11.6-14.6)
[2018-01-27 06:56] LABS: CHLORIDE 103 mEq/L (98-107)
[2018-01-27 08:00] VITALS: BP 105/70
[2018-01-27] MEDS: ASPIRIN 81MG EC TABLET PO SCH (08:44)
[2018-01-27] MEDS: ENOXAPARIN 40MG/0.4ML SYR SUBCUT SCH (08:45)
[2018-01-27] MEDS: DIGOXIN 250MCG TABLET PO SCH (08:45)
[2018-01-27] MEDS: MAGNESIUM OXIDE 400MG TABLET PO SCH (08:45)
[2018-01-27] MEDS: ALPRAZOLAM 0.5 MG TABLET PO SCH (08:45)
== END 2018-01-27 10:10 | disposition home or self-care (01) | DRG 309 ==
LOC: ER 10:20 → 8WST 13:24 → ENRESERV 15:39
PROVIDERS: ADMIT Internal Medicine; ATTEND Internal Medicine
DX: I47.1 Supraventricular tachycardia (principal); L03.213 Periorbital cellulitis; M48.00 Spinal stenosis, site unspecified; I48.92 Unspecified atrial flutter; E87.6 Hypokalemia; S00.11XA Contusion of right eyelid and periocular area, initial encounter; F32.9 Major depressive disorder, single episode, unspecified; F41.1 Generalized anxiety disorder; M54.5 Low back pain; E83.42 Hypomagnesemia; G56.00 Carpal tunnel syndrome, unspecified upper limb; X58.XXXA Exposure to other specified factors, initial encounter; G89.29 Other chronic pain; I11.9 Hypertensive heart disease without heart failure; Z82.49 Family history of ischemic heart disease and other diseases of the circulatory system; Z90.710 Acquired absence of both cervix and uterus; Z79.899 Other long term (current) drug therapy; Z59.0 Homelessness; Y93.89 Activity, other specified; Y92.89 Other specified places as the place of occurrence of the external cause; Y99.8 Other external cause status
CPT/HCPCS: 36415; 70486; 71045; 80048; 80202; 82550; 82553; 83735; 83880; 84484; 93005; 96374; 96375; 99285; J1650; J2270; J2405; J3370; J3475; J3490; J7050; J7060

== ENCOUNTER 2025-01-13 14:34 | Emergency (ER) | payer MEDICAID ==
[~2025-01-13] VITALS: Ht 172.7 cm; Wt 77.0 kg
[~2025-01-13 14:34] MED LIST changes: +APIX5TAB MT; +CARI-518 PO; +CYCL10TA21 MT; -CYCL10TA7 MT; +DIGO250T79 MT; -DIGO250T81 MT; -S350 PO
[2025-01-13 15:02] VITALS: O2SAT 96
[2025-01-13] MEDS ORDERED: BO1 TP (15:54)
[2025-01-13 16:11] VITALS: BP 169/84; PULSE 78; RESP 18; TEMP 36.9; O2SAT 100
[2025-01-13] MEDS: TETANUS, DIPHTHERIA, PERTUSSIS VAC/PF 0.5ML (>10YR OLD) IM ONE (16:13)
== END 2025-01-13 16:22 | disposition home or self-care (01) ==
LOC: ER 14:34
DX: T23.209A Burn of second degree of unspecified hand, unspecified site, initial encounter (principal); I10 Essential (primary) hypertension; Z79.899 Other long term (current) drug therapy; Z90.710 Acquired absence of both cervix and uterus; X58.XXXA Exposure to other specified factors, initial encounter; Y93.89 Activity, other specified; Y92.89 Other specified places as the place of occurrence of the external cause; Y99.8 Other external cause status
CPT/HCPCS: 90471; 90715; 99283